=== PATIENT | female | born 1985 | race Caucasian/White ===

== ENCOUNTER 2016-07-01 17:31 | Emergency (ER) | payer SELFPAY ==
[2016-07-01] MEDS ORDERED: PREN1TAB79 PO (20:02)
== END 2016-07-01 21:46 | disposition left against medical advice (07) ==
LOC: E/R 17:31 → FTE 21:46
DX: Z53.21 Procedure and treatment not carried out due to patient leaving prior to being seen by health care provider (principal)

== ENCOUNTER 2016-07-01 19:36 | Inpatient (IN) | payer MEDICAID ==
[~2016-07-01] VITALS: Ht 157.5 cm; Wt 81.0 kg
[2016-07-01 20:02] VITALS: BP 121/80; PULSE 81; RESP 18; Ht 157.5 cm; Wt 81.0 kg
[2016-07-01] MEDS ORDERED: PREN1TAB79 PO (20:02)
[2016-07-01] MEDS ORDERED: INSULIN REGULAR, HUMAN 100 UNIT/1 ML 3ML VIAL SC ONE (21:00)
--- NOTE | 2016-07-01 21:58 | PN ---
Date/Time of Note Date/Time of Note DATE: 07/01/16 TIME: 21:49 OB Subjective Subjective Subjective 30 yo P2 @ 34.1 wks, GDMA1, skipped breakfast and lunch today and ate a large dinner. Her FS in clinic was over 400. In triage it came down to 269. Patient has no complaints and state her BS is usually 93. No obstetric complaints; good FM, no VB, no LOF OB Objective Objective Objective Abdomen- gravid, n/t SVE- deferred FHT- Cat I [place]- no ctx Abdomen: WNL Accelerations: Accelerations Present Decelerations: No Decelerations Varibility: Moderate Contractions on Admission: None OB Assessment/Plan Other Assessment: patient came with elevated FS reassuring status Other plan: Gave 4 U insulin; will recheck FS in 2 hrs If nml, d/c home and f/u tomorrow for repeat FS patient to f/u in clinic on Monday to see perinatologist and possibly start insulin vs glyburide CHOLO CONLEY MD Jul 01, 2016 21:58
[2016-07-02] MEDS ORDERED: INSULIN REGULAR, HUMAN 100 UNIT/1 ML 3ML VIAL SC ONE ×2 (02:45)
[2016-07-02] MEDS: LACTATED RINGER'S 1,000 ML IV SCH ×5 (04:26→22:52)
--- NOTE | 2016-07-02 05:49 | HP ---
Date/Time of Note Date/Time of Note DATE: 07/02/16 TIME: 05:44 OB - History Hx of Present Free Text/Dictation 30 yo P2 @ 34 wks 1 day, presents w elevated blood sugar over 400 from clinic. By the time she arrived, it was down to 269. After a total of 8 U of insulin, it went down to 176, but still remains elevated patient has no obstetric complaints- good FM, no VB, no LOF, no ctx Chief Complaint: elevated BS; record unavailable at this time : 3 Para: 2 Past Family/Social History * Past Medical, Surgical, Family and Obstetric Histories reviewed from chart. OB Admission Exam Vital Signs Vital Signs Vital Signs Date Time Temp Pulse Resp B/P Pulse Ox O2 Delivery O2 Flow Rate FiO2 07/01/16 20:02 98.0 81 18 121/80 Room Air Physical Exam Abdomen: WNL Accelerations: Accelerations Present Decelerations: No Decelerations Contractions on Admission: None Last 72 hourBlood Glucose Bedside Glucose - 72 Hours Test 07/01/16 20:12 07/01/16 23:27 07/02/16 02:39 07/02/16 03:56 Bedside Glucose 269mg/dL (70-220) H 177mg/dL (70-220) 193mg/dL (70-220) 198mg/dL (70-220) Test 07/02/16 05:15 Bedside Glucose 176mg/dL (70-220) OB Assessment/Plan Other Assessment: 30 yo P2 @ 34 wks 1 day w elevated blood sugars, h/o GDMA1, skipped breakfast and lunch today and ate a "large dinner" Other plan: Admit to antepartum will give 2 more Units insulin Will order diabetic consult Routine anepartum care. CHOLO CONLEY MD Jul 02, 2016 05:49
[2016-07-02] MEDS ORDERED: GLUCOSE GEL 15 GRAM TUBE BUCCAL PRN (06:00)
[2016-07-02] MEDS ORDERED: GLUCAGON 1 MG INJ IM PRN (06:00)
[2016-07-02] MEDS ORDERED: ACCUCHECK XX SCH ×2 (06:00→13:00)
[2016-07-02] MEDS ORDERED: DEXTROSE 50% 50 ML SYRINGE IV PRN ×2 (06:00)
[2016-07-02] MEDS ORDERED: GLUCOSE GEL 15 GRAM TUBE PO PRN ×2 (06:00)
--- NOTE | 2016-07-02 07:41 | TRIAGE ---
OB Triage Datetime Report Generated by CPN: 07/02/2016 07:41 Datetime: 07/02/2016 07:00 Stage of : OB Triage Labor Evaluation Frequency: x3 with irritability Monitor Mode: External Duration (sec)2399: 90-190 Quality: Mild Pattern: Normal: <= 5 Contractions in 10 Minutes Resting Tone [place]: Relaxed Heart Rate FHR Baseline Rate: 130 Monitor Mode: External US Variability: Moderate 6-25 bpm Accelerations: 15X15 Decelerations: Late; Variable Category: Category II Datetime: 07/02/2016 06:58 Pain Assessment Pain Scale: 0 Pain Presence: None/Denies Pain Type: N/A Pain Assessment Comments: Pt continues to deny pain or cramping Datetime: 07/02/2016 06:00 Stage of : OB Triage Labor Evaluation Frequency: x3 with irritability Monitor Mode: External Duration (sec)2399: 80-120 Quality: Mild Pattern: Normal: <= 5 Contractions in 10 Minutes Resting Tone [place]: Relaxed Heart Rate FHR Baseline Rate: 125 Monitor Mode: External US FHR Baseline Changes: No Baseline Change Variability: Moderate 6-25 bpm Accelerations: 15X15 Decelerations: Late Category: Category II Datetime: 07/02/2016 05:25 Stage of : OB Triage Datetime: 07/02/2016 05:16 Bedside Blood Glucose: 176 Datetime: 07/02/2016 05:00 Stage of : OB Triage Labor Evaluation Frequency: x2 with irritability Monitor Mode: External Duration (sec)2399: 100-140 Quality: Mild Pattern: Normal: <= 5 Contractions in 10 Minutes Resting Tone [place]: Relaxed Heart Rate FHR Baseline Rate: 125 Monitor Mode: External US FHR Baseline Changes: No Baseline Change Variability: Moderate 6-25 bpm Accelerations: 15X15 Decelerations: Late (Annotations: x1) Category: Category II Datetime: 07/02/2016 04:00 Stage of : OB Triage Labor Evaluation Frequency: Occasional Monitor Mode: External Duration (sec)2399: 40 Quality: Mild Pattern: Normal: <= 5 Contractions in 10 Minutes Resting Tone [place]: Relaxed Heart Rate FHR Baseline Rate: 125 Monitor Mode: External US Variability: Moderate 6-25 bpm Accelerations: 15X15 Decelerations: None Category: Category I Datetime: 07/02/2016 03:55 Bedside Blood Glucose: 198 Datetime: 07/02/2016 03:00 Stage of : OB Triage Labor Evaluation Frequency: x1 Monitor Mode: External Duration (sec)2399: 90 Quality: Mild Pattern: Normal: <= 5 Contractions in 10 Minutes Resting Tone [place]: Relaxed Heart Rate FHR Baseline Rate: 120 Monitor Mode: External US FHR Baseline Changes: No Baseline Change Variability: Moderate 6-25 bpm Accelerations: 15X15 Decelerations: None Category: Category I Datetime: 07/02/2016 02:45 Stage of : OB Triage Datetime: 07/02/2016 02:39 Bedside Blood Glucose: 193 Datetime: 07/02/2016 02:00 Stage of : OB Triage Labor Evaluation Frequency: x2 Monitor Mode: External Duration (sec)2399: 50-60 Quality: Mild Pattern: Normal: <= 5 Contractions in 10 Minutes Resting Tone [place]: Relaxed Heart Rate FHR Baseline Rate: 120 Monitor Mode: External US Variability: Moderate 6-25 bpm Accelerations: 15X15 Decelerations: Variable Category: Category II Datetime: 07/02/2016 01:00 Labor Evaluation Frequency: x2 Monitor Mode: External Duration (sec)2399: 60-70 Quality: Mild Pattern: Normal: <= 5 Contractions in 10 Minutes Resting Tone [place]: Relaxed Heart Rate FHR Baseline Rate: 120 Monitor Mode: External US Variability: Moderate 6-25 bpm Accelerations: 15X15 Decelerations: None Category: Category I Pain Presence: None/Denies Datetime: 07/02/2016 00:00 Labor Evaluation Frequency: X3 Monitor Mode: External Duration (sec)2399: 50-60 Quality: Mild Pattern: Normal: <= 5 Contractions in 10 Minutes Resting Tone [place]: Relaxed Heart Rate FHR Baseline Rate: 120 Monitor Mode: External US Variability: Moderate 6-25 bpm Accelerations: 15X15 Decelerations: None Category: Category I Datetime: 07/01/2016 23:47 Stage of : OB Triage Datetime: 07/01/2016 23:27 Stage of : OB Triage Bedside Blood Glucose: 177 Pain Assessment Pain Scale: 0 Pain Presence: None/Denies Pain Type: N/A Datetime: 07/01/2016 23:20 Stage of : OB Triage Datetime: 07/01/2016 23:00 Stage of : OB Triage Labor Evaluation Frequency: X1 Monitor Mode: External Duration (sec)2399: 60 Quality: Mild Resting Tone [place]: Relaxed Heart Rate FHR Baseline Rate: 125 Monitor Mode: External US Variability: Moderate 6-25 bpm Accelerations: 15X15 Decelerations: Late Category: Category II Datetime: 07/01/2016 22:42 Comments: Audible hiccups Pain Assessment Pain Scale: 0 Pain Presence: None/Denies Pain Type: N/A Pain Assessment Comments: Pt continues to deny any pain or cramping Datetime: 07/01/2016 22:25 Stage of : OB Triage Datetime: 07/01/2016 22:07 Monitor Mode: External US Datetime: 07/01/2016 22:06 Stage of : OB Triage Datetime: 07/01/2016 22:00 Stage of : OB Triage Labor Evaluation Frequency: X2 Monitor Mode: External Duration (sec)2399: 50-70 Quality: Mild Resting Tone [place]: Relaxed Heart Rate FHR Baseline Rate: 125 Monitor Mode: External US Variability: Moderate 6-25 bpm Accelerations: 15X15 Decelerations: None Category: Category I Datetime: 07/01/2016 21:00 Stage of : OB Triage Labor Evaluation Frequency: X1 Monitor Mode: External Duration (sec)2399: 80 Quality: Mild Pattern: Normal: <= 5 Contractions in 10 Minutes Resting Tone [place]: Relaxed Heart Rate FHR Baseline Rate: 125 Monitor Mode: External US Variability: Moderate 6-25 bpm Accelerations: 15X15 Decelerations: None Datetime: 07/01/2016 20:30 Stage of : OB Triage Labor Evaluation Frequency: X1 Monitor Mode: External Duration (sec)2399: 40 Quality: Mild Pattern: Normal: <= 5 Contractions in 10 Minutes Resting Tone [place]: Relaxed Heart Rate FHR Baseline Rate: 130 Monitor Mode: External US FHR Baseline Changes: No Baseline Change Variability: Moderate 6-25 bpm Accelerations: 15X15 Decelerations: None Datetime: 07/01/2016 20:12 Bedside Blood Glucose: 269 Datetime: 07/01/2016 20:04 EGA: 34.1 Datetime: 07/01/2016 19:59 Time of Arrival: 07/01/2016 19:31 Arrived By: Ambulatory Arrived From: Office Chief Complaint: High blood sugar in clinic - 418 Movement: Present Contractions: Denies/Absent Rupture of Membranes: Denies Vaginal Bleeding: None Vaginal Discharge: Denies Abdominal Trauma: Not Applicable Patient Complaints: None Time Provider Notified: 07/01/2016 19:44 Provider Notified: Initial Plan: Check BS Datetime: 07/01/2016 19:57 Stage of : OB Triage Assessment Type: Triage Maternal Assessment Level of Consciousness: Fully Conscious DTR's/Clonus: DTRs 2+; No Clonus Headache: Denies Blurred Vision: No Respiratory Effort: Unlabored; Regular Rhythm; Equal Expansion Breath Sounds, Left: Clear and Equal Breath Sounds, Right: Clear and Equal Nausea/Vomiting: Denies RUQ Epigastric Pain: Denies Lower Extremities Edema: None Degree: None Upper Extremities Edema: None Degree: None Facial Edema: None Temperature Route: Oral Fall Risk Assessment History of Falling: (0) No Secondary Diagnosis: (0) No Ambulatory Aid: (0) Bedrest/Nurse Assist IV Therapy: (0) No Gait: (0) Normal/Bedrest/Immobile Mental Status: (0) Oriented to Own Ability Fall Score: 0 Fall Risk Score Definition: No Risk: No action required Pain Assessment Pain Scale: 0 Pain Presence: None/Denies Pain Type: N/A Datetime: 07/01/2016 19:44 Stage of : OB Triage
[2016-07-02] MEDS ORDERED: MULTIVIT/MIN/FOLATE/IRON/PREN TAB PO SCH (09:30)
[2016-07-02] MEDS ORDERED: ACETAMINOPHEN 325 MG TAB PO PRN (09:30)
[2016-07-02] MEDS: FERROUS SULFATE (EC) 325 MG TAB PO SCH (10:41)
[2016-07-02] MEDS: MULTIVIT/MIN/FOLATE/IRON/PREN TAB PO SCH (10:42)
[2016-07-02] MEDS: DOCUSATE SODIUM 100 MG CAP PO SCH (10:42)
--- NOTE | 2016-07-02 11:12 | PERINOTE ---
Date/Time of Note Date/Time of Note DATE: 07/02/16 TIME: 10:53 Assessment/Recommendations Other Assessments IUP Diabetes out of control Recommendations: Have ordered insulin regimen, will adjust as needed Have ordered HgbA1c to assess the possibility of pregestational diabetes. Patient was informed of the risk to the fetus of uncoltrolled maternal blood glucose. OB Subjective Free Text/Dictaton Patient with known gestational diabetes, has failed follow up in perinatology. Seen in her Ob clinic yesterday with a blood glucose >400, sent for admission. She reports that she has been checking glucose regularly, and that her last fasting was 93. This report seems unreliable given current blood glucose readings. The patient denies diabetes with her other pregnancies. HD# 1 IUP @ 34W2D Complaints/Overnight events None Current Medications Current Medications Lactated Ringer's (Lr) 1,000 ml @ 125 mls/hr Q8H IV Last administered on 04:26; Admin Dose 125 MLS/HR; Start 07/02/16 at 04:30 Diagnostic Test (Pha) (Accucheck) 1 ea FBSPP XX ; Start 07/02/16 at 06:00 Miscellaneous Information 1 ea NOTE XX ; Start 07/02/16 at 06:00 Glucose (Glutose) 15 gm Q15M PRN PO DECREASED GLUCOSE; Start 07/02/16 at 06:00 Glucose (Glutose) 22.5 gm Q15M PRN PO DECREASED GLUCOSE; Start 07/02/16 at 06:00 Dextrose (D50w Syringe) 25 ml Q15M PRN IV DECREASED GLUCOSE; Start 07/02/16 at 06:00 Dextrose (D50w Syringe) 50 ml Q15M PRN IV DECREASED GLUCOSE; Start 07/02/16 at 06:00 Glucagon (Glucagen) 1 mg Q15M PRN IM DECREASED GLUCOSE; Start 07/02/16 at 06:00 Glucose (Glutose) 15 gm Q15M PRN BUCCAL DECREASED GLUCOSE; Start 07/02/16 at 06: 00 Prenat Multivit/ Hand/Iron/Folic Ac 1 tab 1 tab DAILY PO Last administered on 07/02/16 10:42; Admin Dose 1 TAB; Start 07/02/16 at 09:30 Lactated Ringer's (Lr) 1,000 ml @ 125 mls/hr Q8H IV ; Start 07/02/16 at 09:26 Ferrous Sulfate (Ferrous Sulfate (Ec)) 325 mg DAILY PO Last administered on 07/02 10:41; Admin Dose 325 MG; Start 07/02/16 at 09:30 Docusate Sodium (Colace) 100 mg DAILY PO Last administered on 07/02/16 10:42; Admin Dose 100 MG; Start 07/02/16 at 09:30 Acetaminophen (Tylenol Tab) 650 mg Q4H PRN PO PAIN AND OR ELEVATED TEMP; Start 07/02/16 at 09:30 Past Medical History Medical History: no pertinent history Surgical History: other ( delivery (breech )) TEST CONSULTANT History: no pertinent TEST CONSULTANT history Para: 2 : 3 Family History Significant Family History: diabetes Social History Smoker: non-smoker Alcohol: none Drugs: none OB Admission Exam Physical Exam Vitals: Vital Signs Date Time Temp Pulse Resp B/P Pulse Ox O2 Delivery O2 Flow Rate FiO2 07/01/16 20:02 98.0 81 18 121/80 Room Air HEENT: WNL Heart: Rhythm Normal Lungs: Clear Abdomen: WNL Heart Rate: 120's Accelerations: Accelerations Present Decelerations: No Decelerations Varibility: Moderate Contractions on Admission: None Last 72 hourBlood Glucose Bedside Glucose - 72 Hours Test 07/01/16 20:12 07/01/16 23:27 07/02/16 02:39 07/02/16 03:56 Bedside Glucose 269mg/dL (70-220) H 177mg/dL (70-220) 193mg/dL (70-220) 198mg/dL (70-220) Test 07/02/16 05:15 Bedside Glucose 176mg/dL (70-220) Copies To: CC: AJIT CERVANTES MD, MARIE H MD Jul 02, 2016 11:03
[2016-07-02] MEDS: ACCUCHECK XX SCH ×5 (11:30→21:31)
[2016-07-02 11:38] LABS: ALBUMIN 3.1 g/dl (3.3-4.9); POTASSIUM 4.2 mmol/L (3.5-5.1)
[2016-07-02 11:40] LABS: CREATININE 0.51 mg/dl (0.44-1.00)
[2016-07-02 11:41] LABS: ALBUMIN/GLOBULIN RATIO 0.93; BILIRUBIN,INDIRECT 0.4 mg/dl (0-1.1); BILIRUBIN,TOTAL 0.4 mg/dl (0.2-1.3); CALCIUM 8.9 mg/dl (8.4-10.2); INR 0.98; PARTIAL THROMBOPLASTIN TIME 25.2 Sec (25.0-35.0); TOTAL PROTEIN 6.4 g/dl (6.1-8.1)
--- NOTE | 2016-07-02 12:13 | PN ---
Date/Time of Note Date/Time of Note DATE: 07/02/16 TIME: 12:03 OB Subjective Subjective Subjective This is a 30 years old female was admitted to [facility] at 34 weeks2/7 days for uncontrolled blood glucose, she is a 3 para 2 history of 1 previous receiving care from [facility]. She had perinatology consult for adjusting her out of control blood glucose( refer to perinatologist recommendation) Biophysical profile, estimated weight request. OB Objective HEENT: WNL Abdomen: WNL Extremities: Normal Reflexes: Normal Cervical Dilatation: None Effacement: 0% Accelerations: Accelerations Present Decelerations: No Decelerations Contractions on Admission: None AJIT CERVANTES MD Jul 02, 2016 12:13
[2016-07-02] MEDS: INSULIN ASPART [NOVOLOG] 3 ML PEN SC SCH ×5 (12:58→19:52)
--- NOTE | 2016-07-02 13:00 | RADRPT ---
PROCEDURE: Obstetrical ultrasound. CLINICAL INDICATION: , evaluation. Pelvic pain. Maternal hyperglycemia TECHNIQUE: Transabdominal sonographic images of the pelvis are obtained. COMPARISON: 04/11/2016 FINDINGS: Single intrauterine gestation. There is a cephalic presentation. Measurements were made in order to determine age. The results are as follows: BPD = 8.50 cm HC = 30.02 cm AC = 34.81 cm; abdominal circumference may be slightly over measured FL = 6.17 cm Heart rate = 140 beats per minute The placenta is posterior. There is no evidence for an abruption or placenta previa. Ovaries are not visualized. IMPRESSION: Single intrauterine gestation of approximately 34 weeks 4 days by ultrasound criteria. Estimated weight = 2835 g; 91.9 percentile for estimated ultrasound age. Abdominal circumference appears slightly over measured; measurements are otherwise concordant. RPTAT: AADD .Taj Win MD, MD Date Time Electronically viewed and signed by .Taj Win MD, on 07/02/2016 13:00 .B/
--- NOTE | 2016-07-02 13:01 | RADRPT ---
PROCEDURE: OB ultrasound for biophysical profile CLINICAL INDICATION: Biophysical profile. . Maternal hyperglycemia TECHNIQUE: Multiple sonographic images of the pelvis were obtained. Transabdominal view of the gr avid uterus are available for review. The images were reviewed on a PACS workstation. COMPARISON: None FINDINGS: Single intrauterine gestation. Presentation: cephalic. Placenta: Posterior breathing movement = 2/2 tone = 2/2 motion = 2/2 ANMOL = 2/2 ANMOL = 16.2 cm heart rate: 122 beats per minute IMPRESSION: Single intrauterine gestation. Biophysical profile 01/03 RPTAT: AADD .Taj Win MD, MD Date Time Electronically viewed and signed by .Taj Win MD, on 07/02/2016 13:01 .B/
[2016-07-02 16:25] LABS: BASOPHILS % 0.1 % (0.0-2.0); EOSINOPHILS % 0.5 % (0.0-7.0); HEMATOCRIT 38.2 % (37.0-47.0); LYMPHOCYTES # 1.9 10^3/ul (0.8-2.9); LYMPHOCYTES % 26.1 % (15.0-51.0); MEAN CORPUSCULAR HEMOGLOBIN 29.7 pg (29.0-33.0); MEAN CORPUSCULAR VOLUME 87.3 fl (82.0-101.0); MEAN PLATELET VOLUME 10.3 fl (7.4-10.4); MONOCYTE # 0.3 10^3/ul (0.3-0.9); MONOCYTES % 4.1 % (0.0-11.0); NEUTROPHIL # 4.9 10^3/ul (1.6-7.5); NEUTROPHILS % 69.2 % (39.0-77.0); PLATELET COUNT 163 10^3/UL (140-440); RED BLOOD COUNT 4.38 10^6/ul (4.20-5.40); RED CELL DISTRIBUTION WIDTH 13.5 % (11.5-14.5); UNCORRECTED WBC 7.1 10^3/ul (4.8-10.8); WHITE BLOOD COUNT 7.1 10^3/ul (4.8-10.8)
[2016-07-02 16:27] LABS: CONDITION 1
[2016-07-02] MEDS: INSULIN ISOPHANE (NPH) 10 ML INJ SC SCH (21:30)
[2016-07-03] MEDS: ACCUCHECK XX SCH ×8 (07:44→21:06)
[2016-07-03] MEDS: LACTATED RINGER'S 1,000 ML IV SCH ×3 (08:00→20:29)
[2016-07-03] MEDS: DOCUSATE SODIUM 100 MG CAP PO SCH (08:49)
[2016-07-03] MEDS: FERROUS SULFATE (EC) 325 MG TAB PO SCH (08:49)
[2016-07-03] MEDS: INSULIN ISOPHANE (NPH) 10 ML INJ SC SCH ×2 (08:59→21:05)
[2016-07-03] MEDS: INSULIN ASPART [NOVOLOG] 3 ML PEN SC SCH ×5 (09:04→17:38)
[2016-07-03] MEDS: MULTIVIT/MIN/FOLATE/IRON/PREN TAB PO SCH (09:07)
--- NOTE | 2016-07-03 14:09 | PN ---
Date/Time of Note Date/Time of Note DATE: 07/03/16 TIME: 13:48 OB Subjective Subjective Subjective Afebrile, vital signs stable,had consultation with seo specialist, her medication were adjusted, her blood glucose during the last 24 hours are as follows 214, 156, 192, 144, 128, and today is 91, heart rate category 1, plan of discharge discussed with the patient, if her blood sugar stays under control Laboratory Tests Test 07/02/16 15:03 07/02/16 19:33 07/02/16 21:33 07/03/16 07:39 Bedside Glucose 206mg/dL 156mg/dL 192mg/dL 144mg/dL Test 07/03/16 11:04 07/03/16 12:54 Bedside Glucose 128mg/dL 94mg/dL Current Medications Medications (Trade) Dose Ordered Sig/Maddie Route PRN Reason Start Time Stop Time Status Last Admin Dose Admin Insulin Human Regular (Humulin R) 4 unit ONCE ONCE SC 07/01/16 21:00 07/01/16 21:01 DC 07/01/16 21:18 Insulin Human Regular (Humulin R) 2 unit ONCE ONCE SC 07/02/16 00:00 07/02/16 00:02 DC 07/02/16 00:09 Insulin Human Regular 2 unit 2 unit ONCE ONCE SC 07/02/16 02:45 07/02/16 02:47 DC 07/02/16 02:55 Lactated Ringer's (Lr) 1,000 ml @ 125 mls/hr Q8H IV 07/02/16 04:30 07/02/16 11:11 DC 07/02/16 04:26 Diagnostic Test (Pha) (Accucheck) 1 ea FBSPP XX 07/02/16 06:00 07/02/16 11:11 DC Miscellaneous Information (* Miscellaneous Pharmacy Order) 1 ea OB HYPOGLYCEMIA ONCE XX 07/02/16 06:00 07/02/16 06:02 DC Miscellaneous Information 1 ea NOTE XX 07/02/16 06:00 Glucose (Glutose) 15 gm Q15M PRN PO DECREASED GLUCOSE 07/02/16 06:00 Glucose (Glutose) 22.5 gm Q15M PRN PO DECREASED GLUCOSE 07/02/16 06:00 Dextrose (D50w Syringe) 25 ml Q15M PRN IV DECREASED GLUCOSE 07/02/16 06:00 Dextrose (D50w Syringe) 50 ml Q15M PRN IV DECREASED GLUCOSE 07/02/16 06:00 Glucagon (Glucagen) 1 mg Q15M PRN IM DECREASED GLUCOSE 07/02/16 06:00 Glucose (Glutose) 15 gm Q15M PRN BUCCAL DECREASED GLUCOSE 07/02/16 06:00 Prenat Multivit/ [place]/Iron/Folic Ac 1 tab 1 tab DAILY PO 07/02/16 09:30 07/03/16 09:07 Lactated Ringer's (Lr) 1,000 ml @ 125 mls/hr Q8H IV 07/02/16 09:26 07/03/16 12:14 Prenat Multivit/ [place]/Iron/Folic Ac ( S) 1 tab DAILY PO 07/02/16 09:30 UNV Ferrous Sulfate (Ferrous Sulfate (Ec)) 325 mg DAILY PO 07/02/16 09:30 07/03/16 08:49 Docusate Sodium (Colace) 100 mg DAILY PO 07/02/16 09:30 07/03/16 08:49 Acetaminophen (Tylenol Tab) 650 mg Q4H PRN PO PAIN AND OR ELEVATED TEMP 07/02/16 09:30 Diagnostic Test (Pha) (Accucheck) 1 ea AC MEALS AND BEDTIME XX 07/02/16 11:30 07/03/16 11:05 Diagnostic Test (Pha) (Accucheck) 1 ea Q4 XX 07/02/16 13:00 UNV Insulin Aspart (Novolog Insulin Pen) AC MEALS SC 07/02/16 11:30 07/02/16 19:52 Diagnostic Test (Pha) (Accucheck) 1 ea FBSPP XX 07/02/16 14:00 07/03/16 11:05 Insulin Human NPH (Novolin-N) 28 units AC BREAKFAST SC 07/03/16 07:30 07/03/16 08:59 Insulin Human NPH (Novolin-N) 11 units HS SC 07/02/16 21:00 07/02/16 21:30 Insulin Aspart (Novolog Insulin Pen) 14 unit WITH BREAKFAST SC 07/03/16 08:00 07/03/16 09:04 Insulin Aspart (Novolog Insulin Pen) 11 unit WITH DINNER SC 07/02/16 18:05 07/02/16 17:34 Miscellaneous Information (* Miscellaneous Pharmacy Order) 1 ea OB HYPOGLYCEMIA ONCE XX 07/02/16 11:00 07/02/16 11:06 DC Miscellaneous Information (* Miscellaneous Pharmacy Order) 1 ea ONCE ONCE XX 07/02/16 11:00 07/02/16 11:06 DC Miscellaneous Information (* Miscellaneous Pharmacy Order) Discontinue ALL previ... ONCE ONCE XX 07/02/16 11:00 07/02/16 11:06 DC Insulin Aspart (Novolog Insulin Pen) 8 unit AC LUNCH SC 07/02/16 11:30 07/03/16 12:56 control she may be discharged home tomorrow. AJIT CERVANTES MD Jul 03, 2016 14:06
[2016-07-04] MEDS: LACTATED RINGER'S 1,000 ML IV SCH ×3 (04:32→20:35)
[2016-07-04] MEDS: ACCUCHECK XX SCH ×8 (08:04→21:22)
[2016-07-04] MEDS: INSULIN ISOPHANE (NPH) 10 ML INJ SC SCH ×2 (08:58→21:12)
[2016-07-04] MEDS: INSULIN ASPART [NOVOLOG] 3 ML PEN SC SCH ×2 (09:01→17:30)
[2016-07-04] MEDS: DOCUSATE SODIUM 100 MG CAP PO SCH (09:51)
[2016-07-04] MEDS: MULTIVIT/MIN/FOLATE/IRON/PREN TAB PO SCH (09:51)
[2016-07-04] MEDS: FERROUS SULFATE (EC) 325 MG TAB PO SCH (09:51)
--- NOTE | 2016-07-04 16:37 | PERINOTE ---
Date/Time of Note Date/Time of Note DATE: 07/04/16 TIME: 16:37 Assessment/Recommendations Other Assessments Late IUP Diabetes. High HgbA1c suggests that this may have been previously undiagnosed pregestational diabetes. Blood glucose control is adequate on current insulin regimen Recommendations: I feel that this patient can be discharged if she is able to self-inject and understands the diabetic diet. I would like to see her in the perinatology clinic in 7-10 days for additional insulin adjustment. OB Subjective Free Text/Dictaton Patient admitted with diabetes out of control. Blood glucose levels are improved on insulin regimen HD# 3 IUP @ 34W4D Complaints/Overnight events None Current Medications Current Medications Miscellaneous Information 1 ea NOTE XX ; Start 07/02/16 at 06:00 Glucose (Glutose) 15 gm Q15M PRN PO DECREASED GLUCOSE; Start 07/02/16 at 06:00 Glucose (Glutose) 22.5 gm Q15M PRN PO DECREASED GLUCOSE; Start 07/02/16 at 06:00 Dextrose (D50w Syringe) 25 ml Q15M PRN IV DECREASED GLUCOSE; Start 07/02/16 at 06:00 Dextrose (D50w Syringe) 50 ml Q15M PRN IV DECREASED GLUCOSE; Start 07/02/16 at 06:00 Glucagon (Glucagen) 1 mg Q15M PRN IM DECREASED GLUCOSE; Start 07/02/16 at 06:00 Glucose (Glutose) 15 gm Q15M PRN BUCCAL DECREASED GLUCOSE; Start 07/02/16 at 06: 00 Prenat Multivit/ Coverstitch Elastic Attacher/Iron/Folic Ac 1 tab 1 tab DAILY PO Last administered on 07/04/16 09:51; Admin Dose 1 TAB; Start 07/02/16 at 09:30 Lactated Ringer's (Lr) 1,000 ml @ 125 mls/hr Q8H IV Last administered on 12:29; Admin Dose 125 MLS/HR; Start 07/02/16 at 09:26 Ferrous Sulfate (Ferrous Sulfate (Ec)) 325 mg DAILY PO Last administered on 07/04 09:51; Admin Dose 325 MG; Start 07/02/16 at 09:30 Docusate Sodium (Colace) 100 mg DAILY PO Last administered on 07/04/16 09:51; Admin Dose 100 MG; Start 07/02/16 at 09:30 Acetaminophen (Tylenol Tab) 650 mg Q4H PRN PO PAIN AND OR ELEVATED TEMP; Start 07/02/16 at 09:30 Diagnostic Test (Pha) (Accucheck) 1 ea FBSPP XX Last administered on 07/04/16 11:08; Admin Dose 1 EA; Start 07/02/16 at 14:00 Insulin Human NPH (Novolin-N) 11 units HS SC Last administered on 07/03/16 21: 05; Admin Dose 11 UNITS; Start 07/02/16 at 21:00 OB Admission Exam Physical Exam Vitals: Vital Signs Date Time Temp Pulse Resp B/P Pulse Ox O2 Delivery O2 Flow Rate FiO2 07/01/16 20:02 98.0 81 18 121/80 Room Air Heart Rate: 120's Accelerations: Accelerations Present Decelerations: No Decelerations Varibility: Moderate Contractions on Admission: None Last 72 hourBlood Glucose Bedside Glucose - 72 Hours Test 07/01/16 20:12 07/01/16 23:27 07/02/16 02:39 07/02/16 03:56 Bedside Glucose 269mg/dL (70-220) H 177mg/dL (70-220) 193mg/dL (70-220) 198mg/dL (70-220) Test 07/02/16 05:15 07/02/16 11:06 07/02/16 15:03 07/02/16 19:33 Bedside Glucose 176mg/dL (70-220) 223mg/dL (70-220) H 206mg/dL (70-220) 156mg/dL (70-220) Test 07/02/16 21:33 07/03/16 07:39 07/03/16 11:04 07/03/16 12:54 Bedside Glucose 192mg/dL (70-220) 144mg/dL (70-220) 128mg/dL (70-220) 94mg/dL (70-220) Test 07/03/16 15:23 07/03/16 17:33 07/03/16 19:46 07/03/16 22:05 Bedside Glucose 129mg/dL (70-220) 78mg/dL (70-220) 135mg/dL (70-220) 111mg/dL (70-220) Test 2/6/17 08:16 07/04/16 11:05 07/04/16 15:02 Bedside Glucose 73mg/dL (70-220) 104mg/dL (70-220) 92mg/dL (70-220) Last 72 hours Lab Results CBC & BMP 07/02/16 11:05 Liver Function Test 07/02/16 11:05 Alanine Aminotransferase (ALT/SGPT) 22 Albumin 3.1 L Alkaline Phosphatase 111 Aspartate Amino Transf (AST/SGOT) 27 Direct Bilirubin 0.00 Total Protein 6.4 Hemoglobin A1C Test 07/02/16 11:05 Hemoglobin A1c 9.2 H Copies To: CC: AJIT CERVANTES MD, MARIE H MD Jul 04, 2016 16:37
[2016-07-05] MEDS: LACTATED RINGER'S 1,000 ML IV SCH ×3 (04:14→20:18)
[2016-07-05] MEDS: ACCUCHECK XX SCH ×7 (07:30→21:14)
[2016-07-05] MEDS: INSULIN ASPART [NOVOLOG] 3 ML PEN SC SCH ×2 (08:51→17:26)
[2016-07-05] MEDS: INSULIN ISOPHANE (NPH) 10 ML INJ SC SCH ×2 (08:52→21:23)
[2016-07-05] MEDS: DOCUSATE SODIUM 100 MG CAP PO SCH (08:57)
[2016-07-05] MEDS: MULTIVIT/MIN/FOLATE/IRON/PREN TAB PO SCH (08:57)
[2016-07-05] MEDS: FERROUS SULFATE (EC) 325 MG TAB PO SCH (08:57)
--- NOTE | 2016-07-05 13:53 | PN ---
Date/Time of Note Date/Time of Note DATE: 07/05/16 TIME: 13:49 OB Subjective Subjective Subjective Vital sign stable, resting in bed, seen by the perinatologist her insulin dosage was adjusted accordingly, her fasting blood sugar was 97 however after consuming food that was brought from home her recent blood glucose is 197, nursing staff or trying to teach patient on to inject insulin, NPH, once patient demonstrates that she is capable of self injection she may go home, follow-up at the clinic and also perinatology office as was recommended by perinatologist , AJIT CERVANTES MD Jul 05, 2016 13:53
[2016-07-06] MEDS: LACTATED RINGER'S 1,000 ML IV SCH (03:46)
[2016-07-06] MEDS: ACCUCHECK XX SCH ×3 (08:28→10:00)
[2016-07-06] MEDS: INSULIN ISOPHANE (NPH) 10 ML INJ SC SCH (08:36)
[2016-07-06] MEDS: INSULIN ASPART [NOVOLOG] 3 ML PEN SC SCH (08:37)
[2016-07-06] MEDS: MULTIVIT/MIN/FOLATE/IRON/PREN TAB PO SCH (09:00)
[2016-07-06] MEDS: DOCUSATE SODIUM 100 MG CAP PO SCH (09:00)
[2016-07-06] MEDS: FERROUS SULFATE (EC) 325 MG TAB PO SCH (09:00)
--- NOTE | 2016-07-06 10:32 | DS ---
Date/Time of Note Date/Time of Note DATE: 07/06/16 TIME: 10:23 Obstetrical Discharge Record Final Diagnosis Final Diagnosis: not delivered Complications Insulin Dependent Diabete Condition on Discharge Physical Assessment Last Vitals: 30 years old. P2, 35 weeks insulin-dependent gestational diabetes admitted to hospital to adjust her insulin, perinatologist consultation done, patient received new prescription needs to continue follow-up with perinatology as well as clinic. Voiding: Yes Bowel Movement: Yes Breast: Soft, non-tender Calf Tenderness: No Patient Condition: Good AJIT CERVANTES MD Jul 06, 2016 10:32
== END 2016-07-06 11:25 | disposition home or self-care (01) | DRG 781 ==
LOC: OBT 19:36 → L-D 19:37 → OBT 07-02 06:59 → OBG 07-02 07:19
PROVIDERS: ADMIT Obstetrics & Gynecology; ATTEND Obstetrics & Gynecology
DX: O24.414 Gestational diabetes mellitus in pregnancy, insulin controlled (principal); O60.03 Preterm labor without delivery, third trimester; Z3A.34 34 weeks gestation of pregnancy
CPT/HCPCS: 36415; 76815; 76818; 80053; 82962; 83036; 85025; 85610; 85730; 86592; 86850; 86900; 86901; 87081; 96360; 96361; 96372; G0463; J1815; J7120